=== PATIENT | male | born 2005 | race Caucasian/White ===

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

== ENCOUNTER 2025-01-26 07:11 | Day surgery (SDC) | payer OTHER ==
[2025-01-26 07:49] VITALS: BMI 31.5
[2025-01-26] MEDS ORDERED: LIDOCAINE HCL 1%, 10 MG/ML (20ML VIAL) ONE (08:12)
[2025-01-26] MEDS ORDERED: BUPIVACAINE HCL/PF 0.5% (5MG/ML) 10 ML VIAL ONE ×2 (08:13→08:18)
[2025-01-26] MEDS ORDERED: PROPOFOL 20 ML ONE (08:22)
[2025-01-26] MEDS ORDERED: SUCCINYLCHOLINE CHLORIDE 200 MG/10 ML SYRINGE ONE (08:22)
[2025-01-26] MEDS ORDERED: MIDAZOLAM HCL 2 MG/2 ML SINGLE DOSE VIAL ONE ×3 (08:22→08:40)
[2025-01-26] MEDS: ACETAMINOPHEN 1000 MG/100 ML BAG IVPB ONE (09:35)
[2025-01-26] MEDS ORDERED: ONDANSETRON 4 MG/2 ML VIAL IVPUSH PRN (09:36)
[2025-01-26] MEDS ORDERED: ACETAMINOPHEN INJECTION 100 ML ONE (09:37)
[2025-01-26 10:12] VITALS: RESP 16; TEMP 97.3
[2025-01-26 10:39] VITALS: BP 141/82; PULSE 98
== END 2025-01-26 10:51 | disposition home or self-care (01) ==
LOC: FASU 07:11
PROVIDERS: ATTEND Surgery
PROC: 0JB60ZZ Excision of Chest Subcutaneous Tissue and Fascia, Open Approach (ICD-10-PCS; principal; 2025-01-26 08:44)
DX: D17.1 Benign lipomatous neoplasm of skin and subcutaneous tissue of trunk (principal)
CPT/HCPCS: 88304-TC; 94760